=== PATIENT | female | born 1970 | race Two or more races ===

== ENCOUNTER 2023-04-27 08:37 | Emergency (ER) | payer BC ==
[~2023-04-27] VITALS: Ht 152.4 cm; Wt 68.0 kg
[2023-04-27 08:55] VITALS: BP 155/96
[2023-04-27] MEDS ORDERED: OMEP-335 PO (11:44)
== END 2023-04-27 12:10 | disposition home or self-care (01) ==
LOC: ER 08:37
DX: R10.13 Epigastric pain (principal); Z20.822 Contact with and (suspected) exposure to COVID-19
CPT/HCPCS: 36415; 71045; 87426